=== PATIENT | female | born 1980 | race Caucasian/White ===

== ENCOUNTER 2016-08-09 06:51 | Inpatient (IN) | payer OTHER ==
[~2016-08-09] VITALS: Ht 154.9 cm; Wt 68.0 kg
[2016-08-09] VITALS (30 sets, daily range): BP systolic 94–128; BP diastolic 49–91; PULSE 62–181; RESP 18–20; TEMP 97.1–102.5
[~2016-08-09 06:51] MED LIST: PRENTAB16 PO
[2016-08-09] MEDS ORDERED: LACTATED RINGER'S 1000 ML INJ 1,000 ML IV PRN (07:28)
[2016-08-09] MEDS ORDERED: CITRIC ACID-SODIUM CITRATE LIQ 30 ML UDC PO SCH ×2 (07:30→23:45)
[2016-08-09] MEDS ORDERED: SODIUM CHLORID 0.9% 500 ML INJ 500 ML IV PRN (07:30)
[2016-08-09] MEDS ORDERED: LIDOCAINE HCL 1% 50 ML VIAL I-DERMAL PRN (07:30)
[2016-08-09] MEDS ORDERED: OXYTOCIN 30 UNITS-500ML PREMIX 500 ML IV ONE (07:30)
[2016-08-09] MEDS ORDERED: LIDOCAINE HCL 1% 50 ML VIAL INFIL PRN (07:30)
[2016-08-09] MEDS ORDERED: MINERAL OIL 10 ML VIAL TOPICAL PRN (07:30)
--- NOTE | 2016-08-09 07:35 | HHI.HP ---
HPI Chief Complaint Thomas broken Date Seen: Aug 09, 2016 Travel History International Travel<30 Days: No Contact w/Intl Traveler<30Days: No Known Affected Area: No History of Present Illness HPI This patient is a 35-year-old white female at 38 weeks and [address] Garza who complains of membranes rupturing earlier this morning and irregular contractions. The heart rate tracing is reactive and contractions are noted on the monitor. Her amnio sure is positive. Para: 0 : 1 History Past Medical History Medical History: Denies Significant Hx Past Surgical History Surgical History: No Previous Surgery Social History Alcohol Use: No Tobacco Use: No Substance Abuse: No Allergies-Medications (Allergen,Severity, Reaction): Coded Allergies: No Known Allergies (Unverified , 04/14/16) Home Meds Active Scripts Comcomplete Complete Tab1 Tab PO DAILY 30 Days Ref 0 Prov:Yulia Kennedy MD R1 01/14/16 Review of Systems General / Constitutional: No: Fever, Weight Gain, Chills, Other Eyes: No: Diploplia, Blurred Vision, Visual changes, Pain, Photophobia HENT: No: Headaches, Vertigo, Lightheadedness Cardiovascular: No: Irregular Rhythm, Chest Pain or Discomfort, Palpitations, Tachycardia, Syncope, Varicosities, Edema, Cyanosis Respiratory: No: Cough, Short of Breath, Other Gastrointestinal: No: Nausea, Vomiting, Diarrhea Genitourinary: No: Decreased Urinary Output, Oliguria Musculoskeletal: No: Limited ROM, Weakness, Cramping, Edema, Pain Skin: No Rash, No Itching, No Dryness, No Lumps, No Change in Pigmentation, No Change in Nails, No Alopecia, No Lesions Neurologic: No: Weakness, Dizziness, Syncope, Focal Abnormalities, Coordination Problem, Headache, Slurred Speech, Seizures Psychiatric: No: Depression, Suicidal Ideations, Homicidal Ideation Endocrine: No: Heat Intolerance, Cold Intolerance, Polydipsia, Polyuria, Other Physical Exam Narrative GENERAL: Well-nourished, well-developed patient. SKIN: Warm and dry. HEAD: Normocephalic and atraumatic. EYES: No scleral icterus. No injection or drainage. ENT: No nasal drainage noted. Mucous membranes pink. Airway patent. NECK: Supple, trachea midline. No JVD. CARDIOVASCULAR: Regular rate and rhythm without murmurs, gallops, or rubs. RESPIRATORY: Breath sounds equal bilaterally. No accessory muscle use. BREASTS: Bilateral exam showed no masses , no retractions, no nipple discharge. ABDOMEN/GI: Abdomen soft, non-tender, bowel sounds present, no rebound, no guarding Gravid to [-38] weeks size Fundal Height: [-37 cm] GENITOURINARY: External Genitalia: intact and normal in appearance BUS glands: [-] Cervix: [-] Dilatation: [3-] Effacement: [60-] Station: [-2] Presentation: [vtx-] Membranes: ruptured] Uterine Contractions: [-irreg] FHT's: Category: [1-] Baseline: [144-] Reactive: [yes-] Variability: [-mod] Decels: [-none] EXTREMITIES: No cyanosis or edema. BACK: Nontender without obvious deformity. No CVA tenderness. NEUROLOGICAL: Awake and alert. Motor and sensory grossly within normal limits. Five out of 5 muscle strength in all muscle groups. Normal speech. Data Data Orders Admit To Inpatient (08/09/16 ) Vital Signs (Adult) .Per protocol (08/09/16 07:28) ^ Heart (08/09/16 07:28) ^ Amnioinfusion (08/09/16 07:28) Urinary Catheter Management .ONCE (08/09/16 07:28) Lactated Ringer's 1000 Ml Inj (Lr 1000 M (08/09/16 07:28) Lactated Ringer's 1000 Ml Inj (Lr 1000 M (08/09/16 07:28) Sodium Chlorid 0.9% 500 Ml Inj (Ns 500 M (08/09/16 07:30) Sodium Chlor 0.9% 1000 Ml Inj (Ns 1000 M (08/09/16 07:48) Lidocaine 1% Inj (50 Ml) (Xylocaine 1% I (08/09/16 07:30) Citric Acid-Sodium Citrate Liq (Bicitra (08/09/16 07:30) Fentanyl Inj (Fentanyl Inj) (08/09/16 07:30) Fentanyl Inj (Fentanyl Inj) (08/09/16 07:30) Complete Blood Count With Diff (08/09/16 07:28) Hold Clot (08/09/16 07:28) Abo/Rh Blood Type (08/09/16 07:28) Urinalysis - C+S If Indicated (08/09/16 07:28) Resp Oxygen Non Rebreathe Mask (08/09/16 ) ^ Epidural / Intrathecal Infus (08/09/16 07:28) Oxytocin 30 Units-500ml Premix (Pitocin (08/09/16 07:30) Lidocaine 1% Inj (50 Ml) (Xylocaine 1% I (08/09/16 07:30) Light Mineral Oil (Muri-Lube Oil) (08/09/16 07:30) Labs Amnio sure positive Assessment/Plan Assessment and Plan This patient is a 35-year-old white female at 38-39 weeks with complaints of water leaking earlier this morning with irregular contractions, her amnio sure is positive this morning she is 3 cm 60% effaced. heart rate tracing is reactive and irregular contractions are noted. The patient not feeling them that much at this time. Plan is to admit the patient for labor management and anticipate vaginal delivery will call Dr. Garza and notify of patient's arrival Fermín Sierra II, MD Aug 09, 2016 07:35
[2016-08-09] MEDS ORDERED: SODIUM CHLOR 0.9% 1000 ML INJ 1,000 ML IV PRN (07:48)
[2016-08-09 08:33] LABS: AUTOMATED NEUTROPHIL # 9.5 TH/MM3 (1.8-7.7); BASOPHIL % 0.3 % (0.0-2.0); EOSINOPHIL # 0.1 TH/MM3 (0-0.4); EOSINOPHIL % 0.5 % (0.0-4.0); HEMATOCRIT 34.1 % (35.0-46.0); HEMO FLAGS DIFF FINAL; LYMPH % 20.1 % (9.0-44.0); LYMPHOCYTE # 2.7 TH/MM3 (1.0-4.8); MEAN CELL VOLUME 83.8 FL (80.0-100.0); MEAN CORPUSCULAR HEMOGLOBIN 28.3 PG (27.0-34.0); MEAN CORPUSCULAR HGB CONC 33.8 % (32.0-36.0); MONO % 7.3 % (0.0-8.0); NEUT % 71.8 % (16.0-70.0); PLATELET COUNT 253 TH/MM3 (150-450); RED BLOOD COUNT 4.07 MIL/MM3 (4.00-5.30); RED CELL DISTRIBUTION WIDTH 13.3 % (11.6-17.2); WHITE BLOOD COUNT 13.2 TH/MM3 (4.0-11.0)
[2016-08-09 08:48] LABS: BACTERIA, URINE OCC /hpf; BLOOD, URINE SMALL (NEG); COMMENT (UR) CULTURE INDICATED; CULTURE IF INDICATED CULTURE INDICATED; GLUCOSE,URINE NEG (NEG); KETONE, URINE NEG (NEG); NITRITE,URINE NEG (NEG); SQUAMOUS EPITHELIAL CELL URINE 4 /hpf (0-5); URINE COLOR YELLOW (YELLW/STRAW)
[2016-08-09] MEDS ORDERED: OXYTOCIN 30 UNITS/NS 500ML PREMIX IV SCH (09:00)
[2016-08-09] MEDS: LACTATED RINGER'S 1000 ML INJ 1,000 ML IV SCH ×4 (09:01→20:06)
[2016-08-09] MEDS ORDERED: ePHEDrine/NS 25 MG/5 ML SYR ONE (13:46)
[2016-08-09] MEDS ORDERED: fentaNYL 2MCG-BUPIV 0.125% INJ 100 ML ONE (13:46)
[2016-08-09] MEDS ORDERED: fentaNYL 2MCG-BUPIV 0.125% INJ 100 ML EPIDURAL SCH (14:45)
[2016-08-09] MEDS ORDERED: NO SYSTEM NARCOTICS XX PRN (14:45)
[2016-08-09] MEDS ORDERED: ePHEDrine/NS 25 MG/5 ML SYR IV PRN (14:45)
[2016-08-09] MEDS ORDERED: DO NOT ADMINISTER ANTICOAGULANTS XX PRN (14:45)
[2016-08-09] MEDS ORDERED: PENICILLIN G POTASSIUM INJ 5,000,000 UNITS in SODIUM CHLORIDE 0.9% INJ 100 ML IV ONE (21:00)
--- NOTE | 2016-08-09 22:16 | PD.LABORPN ---
Subjective Subjective feeling pressure, still very uncomfortable with vaginal checks despite epidural Objective Vital Signs Vital Signs Date Time Temp Pulse Resp B/P Pulse Ox O2 Delivery O2 Flow Rate FiO2 08/09/16 21:38 106 124/91 08/09/16 21:15 99 94/63 08/09/16 21:00 84 102/64 08/09/16 20:45 89 101/75 08/09/16 20:30 88 103/64 08/09/16 20:27 99.0 18 08/09/16 20:16 98 101/67 08/09/16 20:01 181 100/63 08/09/16 19:55 18 08/09/16 19:46 106 119/70 08/09/16 19:31 131 100/49 08/09/16 19:19 84 08/09/16 19:19 128/91 08/09/16 19:00 73 97/61 08/09/16 18:59 18 08/09/16 18:58 98.3 08/09/16 18:56 78 100/51 Objective Pelvic Exam: Cervix: c/c/0 Presentation: ceph LOP, some molding and beginnings of overriding sutures Membranes: ruptured Uterine Contractions:not adequate FHT's: Category:presently Cat I over last 30 min, previously cat II( prolonged decel x 2, over 1 min in duration spontaneous return to baseline, maintained variability, pitocin decreased at that time and pt repositioned) Baseline: 155-160 Reactive: [-] Variability: mod Decels: previously Assessment/Plan Problem List: (1) Delayed delivery after SROM (spontaneous rupture of membranes)antepart Assessment and Plan 35 yo with iup at 38w5d who presented with srom at 0230 1) SROM- induction with pitocin. prolonged rupture, on abx prophylaxis. - pelvis very narrow, d/w pt and family that pelvis may not be adequate for vaginal delivery. She has fully dilated but has had no descent since 1430 today. Exam difficult as pt still uncomfortable with epidural but presentation appears to be ROP and there is some molding and overriding sutures that were not present on my previous exam 3.5 hours ago. She has started pushing with RN but has had no descent. Will allow for another 30 min trial and if no significant change, will proceed with primary cd. Additionally, she has had intermittent Cat II tracing, maintained variability, that has required pitocin dose to be repeatedly decreased. At present MVU not adequate on pitocin of 4, tracing presently Cat I Evelyn Patterson MD Aug 09, 2016 22:16
[2016-08-09] MEDS ORDERED: ACETAMINOPHEN 1000 MG/100 ML VIAL IV ONE (22:40)
[2016-08-09] MEDS ORDERED: OXYTOCIN 10 UNIT/ML AMP ONE (23:01)
[2016-08-09] MEDS ORDERED: ONDANSETRON HCL 4 MG/2 ML VIAL ONE (23:30)
[2016-08-09] MEDS ORDERED: MORPHINE SULFATE PF 5 MG/10 ML VIAL ONE (23:30)
[2016-08-10] VITALS (15 sets, daily range): BP systolic 93–112; BP diastolic 51–69; PULSE 72–89; RESP 16–18; TEMP 97.7–98.6; O2SAT 83–95
--- NOTE | 2016-08-10 00:08 | PD.OB.DELI ---
Procedure Note Section Procedure Pre Op Diagnosis: (1) Delayed delivery after SROM (spontaneous rupture of membranes)antepart (2) Chorioamnionitis (3) Cephalopelvic disproportion (4) Arrested labor Post Op Diagnosis: (1) Delayed delivery after SROM (spontaneous rupture of membranes)antepart (2) Chorioamnionitis (3) Cephalopelvic disproportion (4) Arrested labor Performed by Evelyn Patterson Procedure: Primary Low Transverse Sec Indication for delivery: Other (chorioamnionitis, arrest of descent, Cat II tracing) Confirmed correct: Patient, Procedure, Site, Time-out taken Anesthesia: Epidural Medication prior to procedure: As documented in eMAR Monitoring during procedure: Blood pressure monitoring, Pulse oximetry Urinary catheter: ml urine output (350ml) Sterile preparation: With 2% chlorexidine (Hibiclens) Position: Supine with wedge to right side, Supine with safety belt applied Operative Features Skin Incision: Pfannenstiel Uterine Incision: Low transverse w/knife / blunt ext Membranes Ruptured: Previously, Appearance of fluid (clear) Delivery of : Uneventful : Male One Minute : 9 Five Minute : 9 Weight: 6 lb 9 oz Status of : Viable, Cord blood Placenta delivered: Intact Medications: Antibiotics, Oxytocin Estimated blood loss: 600ml Procedure tolerated: Well Maternal Condition: Stable Baby Complications: Other (nuchal cord x 1 reduced ) Condition: Stable Procedure in detail dictated Evelyn Patterson MD Aug 10, 2016 00:08
[2016-08-10] MEDS ORDERED: DOCUSATE SODIUM 50 MG/SENNA 8.6 MG TAB PO PRN (00:15)
[2016-08-10] MEDS ORDERED: SODIUM CHLORIDE 0.9% FLUSH 5 ML FLUSH IV PRN (00:15)
[2016-08-10] MEDS ORDERED: ONDANSETRON HCL 4 MG/2 ML VIAL IV PUSH PRN (00:15)
[2016-08-10] MEDS ORDERED: OXYTOCIN 30 UNITS-500ML PREMIX 500 ML IV ONE (00:15)
[2016-08-10] MEDS ORDERED: ACETAMINOPHEN 325 MG TAB PO PRN (00:15)
[2016-08-10] MEDS: LACTATED RINGER'S 1000 ML INJ 1,000 ML IV SCH ×2 (00:33→00:34)
[2016-08-10] MEDS ORDERED: PENICILLIN G POTASSIUM INJ 2,500,000 UNITS in SODIUM CHLORIDE 0.9% INJ 100 ML IV SCH (01:00)
[2016-08-10] MEDS ORDERED: EPIDURAL-NO SYSTEMIC NARCOTICS XX PRN (02:15)
[2016-08-10] MEDS ORDERED: EPIDURAL-NALOXONE HCL 0.4 MG/ML AMP IV PRN (02:15)
[2016-08-10] MEDS ORDERED: EPIDURAL-DO NOT ADMINISTER ANTICOAGULANTS XX PRN (02:15)
[2016-08-10] MEDS ORDERED: EPIDURAL-DIPHENHYDRAMINE HCL 50 MG CAP PO PRN (02:15)
[2016-08-10] MEDS ORDERED: EPIDURAL-DIPHENHYDRAMINE HCL 50 MG/ML VIAL IV PUSH PRN (02:15)
--- NOTE | 2016-08-10 07:28 | HHI.OB ---
Subjective Post Operative Day: 1 Remarks 7 hours after section resting comfortably plans to nurse Objective Vitals/I&O Vital Signs Date Time Temp Pulse Resp B/P Pulse Ox O2 Delivery O2 Flow Rate FiO2 08/10/16 03:00 98.2 86 18 102/51 08/10/16 01:17 80 18 107/66 95 08/10/16 01:12 85 18 112/63 08/10/16 01:11 83 08/10/16 01:10 98.2 08/10/16 01:00 72 103/54 08/10/16 00:58 18 94 08/10/16 00:37 94 08/10/16 00:37 18 08/10/16 00:36 89 112/67 08/10/16 00:18 86 18 95 08/10/16 00:17 106/69 08/10/16 00:17 98.6 08/09/16 22:35 102.5 08/09/16 22:31 128 128/66 08/09/16 21:38 106 124/91 08/09/16 21:15 99 94/63 08/09/16 21:00 84 102/64 08/09/16 20:45 89 101/75 08/09/16 20:30 88 103/64 08/09/16 20:27 99.0 18 08/09/16 20:16 98 101/67 08/09/16 20:01 181 100/63 08/09/16 19:55 18 08/09/16 19:46 106 119/70 08/09/16 19:31 131 100/49 08/09/16 19:19 84 08/09/16 19:19 128/91 08/09/16 19:00 73 97/61 08/09/16 18:59 18 08/09/16 18:58 98.3 08/09/16 18:56 78 100/51 08/09/16 12:07 20 08/09/16 12:00 62 105/68 08/09/16 11:31 73 102/60 08/09/16 10:43 81 95/66 08/09/16 10:42 97.1 18 08/09/16 10:41 76 95/71 08/09/16 10:01 67 121/64 08/09/16 09:34 79 104/50 08/09/16 09:06 68 114/66 08/09/16 08:00 98.1 18 08/09/16 07:48 75 115/71 Result Diagram: 08/09/16 08 Objective Remarks GENERAL: Well-nourished, well-developed patient. CARDIOVASCULAR: Regular rate and rhythm without murmurs, gallops, or rubs. RESPIRATORY: Breath sounds equal bilaterally. No accessory muscle use. ABDOMEN/GI: Abdomen soft, non-tender, bowel sounds present. bandage: Clean, dry and intact. Fundus: Firm, non-tender at umbilicus. GENITOURINARY: Light to moderate bleeding. EXTREMITIES: No cyanosis or edema, non-tender, without signs of DVT. Medications and IVs Current Medications Medications (Trade) Dose Ordered Sig/Rohini Route Start Time Stop Time Status Last Admin (Lr 1000 ml Inj) 1,000 ml @ 100 mls/hr Q10H IV 08/10/16 05:09 08/11/16 01:08 08/10/16 00:34 (NS Flush) 2 ml BID IV 08/10/16 09:00 (NS Flush) 2 ml UNSCH PRN IV 08/10/16 00:15 (Mylicon Chew) 80 mg QID PRN PO 08/10/16 00:15 (Tylenol) 650 mg Q6H PRN PO 08/10/16 00:15 (Motrin) 600 mg Q6H PRN PO 08/10/16 00:15 (Percocet 5-325 Mg) 1 tab Q4H PRN PO 08/10/16 00:15 (Percocet 5-325 Mg) 2 tab Q4H PRN PO 08/10/16 00:15 (Benita-Colace) 2 tab Q12H PRN PO 08/10/16 00:15 (M-M-R Ii Inj) 0.5 ml ONCE ONCE SQ 08/11/16 16:00 08/11/16 16:01 (Boostrix Inj) 0.5 ml ONCE ONCE IM 08/11/16 16:00 08/11/16 16:01 (Zofran Inj) 4 mg Q6H PRN IV PUSH 08/10/16 00:15 Miscellaneous Information NO SYSTEMIC NARCOTICS TO BE GIVEN FO... UNSCH PRN XX 08/10/16 02:15 08/11/16 02:14 (Narcan Inj) 0.4 mg UNSCH PRN IV 08/10/16 02:15 08/11/16 02:14 (Benadryl Inj) 25 mg Q6H PRN IV PUSH 08/10/16 02:15 08/11/16 02:14 (Benadryl) 50 mg Q6H PRN PO 08/10/16 02:15 08/11/16 02:14 Miscellaneous Information ALL NURSING DEPARTMENTS UNSCH PRN XX 08/10/16 02:15 08/11/16 02:14 Assessment/Plan Problem List: (1) Delayed delivery after SROM (spontaneous rupture of membranes)antepart Assessment and Plan Primip with unscheduled section due to PROM at home and chorio during labor should have normal post recovery anticipate discharge POD 2/3 Tasha Brown MD Aug 10, 2016 07:28
[2016-08-10] MEDS ORDERED: OXYTOCIN 30 UNITS-500ML PREMIX 500 ML IV PRN (10:15)
[2016-08-10] MEDS: IBUPROFEN 600 MG TAB PO PRN ×2 (10:33→21:08)
[2016-08-10] MEDS: oxyCODONE/ACETAMINOPHEN 5 MG/325 MG TAB PO PRN ×2 (12:18→19:21)
[2016-08-11] MEDS: oxyCODONE/ACETAMINOPHEN 5 MG/325 MG TAB PO PRN ×5 (01:40→22:00)
[2016-08-11] MEDS: IBUPROFEN 600 MG TAB PO PRN ×4 (05:40→22:46)
[2016-08-11 08:10] LABS: AUTOMATED NEUTROPHIL # 15.7 TH/MM3 (1.8-7.7); BASOPHIL % 0.1 % (0.0-2.0); EOSINOPHIL # 0.1 TH/MM3 (0-0.4); EOSINOPHIL % 0.6 % (0.0-4.0); HEMATOCRIT 25.8 % (35.0-46.0); HEMO FLAGS DIFF FINAL; LYMPH % 10.3 % (9.0-44.0); LYMPHOCYTE # 1.9 TH/MM3 (1.0-4.8); MEAN CELL VOLUME 85.3 FL (80.0-100.0); MEAN CORPUSCULAR HEMOGLOBIN 28.6 PG (27.0-34.0); MEAN CORPUSCULAR HGB CONC 33.5 % (32.0-36.0); MONO % 5.6 % (0.0-8.0); NEUT % 83.4 % (16.0-70.0); PLATELET COUNT 179 TH/MM3 (150-450); RED BLOOD COUNT 3.02 MIL/MM3 (4.00-5.30); RED CELL DISTRIBUTION WIDTH 13.8 % (11.6-17.2); WHITE BLOOD COUNT 18.9 TH/MM3 (4.0-11.0)
[2016-08-11 08:15] VITALS: BP 91/62; PULSE 78; RESP 18; TEMP 98.2
--- NOTE | 2016-08-11 08:34 | HHI.OB ---
Subjective Post Operative Day: 2 Remarks no complaints, baby on bili blanket, no N/V Objective Vitals/I&O Vital Signs Date Time Temp Pulse Resp B/P Pulse Ox O2 Delivery O2 Flow Rate FiO2 08/11/16 06:40 18 08/11/16 06:40 18 08/10/16 20:45 97.9 87 18 102/57 08/10/16 17:00 98.1 16 08/10/16 17:00 87 94/54 Result Diagram: 08/09/16 0805 Objective Remarks GENERAL: Well-nourished, well-developed patient. CARDIOVASCULAR: Regular rate and rhythm without murmurs, gallops, or rubs. RESPIRATORY: Breath sounds equal bilaterally. No accessory muscle use. ABDOMEN/GI: Abdomen soft, non-tender, bowel sounds present. incision: Clean, dry and intact. Fundus: Firm, non-tender at umbilicus. GENITOURINARY: Light to moderate bleeding. EXTREMITIES: No cyanosis or edema, non-tender, without signs of DVT. Medications and IVs Current Medications Medications (Trade) Dose Ordered Sig/Rohini Route Start Time Stop Time Status Last Admin (NS Flush) 2 ml BID IV 08/10/16 09:00 (NS Flush) 2 ml UNSCH PRN IV 08/10/16 00:15 (Mylicon Chew) 80 mg QID PRN PO 08/10/16 00:15 (Tylenol) 650 mg Q6H PRN PO 08/10/16 00:15 (Motrin) 600 mg Q6H PRN PO 08/10/16 00:15 08/11/16 05:40 (Percocet 5-325 Mg) 1 tab Q4H PRN PO 08/10/16 00:15 08/10/16 19:21 (Percocet 5-325 Mg) 2 tab Q4H PRN PO 08/10/16 00:15 08/11/16 05:40 (Benita-Colace) 2 tab Q12H PRN PO 08/10/16 00:15 (M-M-R Ii Inj) 0.5 ml ONCE ONCE SQ 08/11/16 16:00 08/11/16 16:01 (Boostrix Inj) 0.5 ml ONCE ONCE IM 08/11/16 16:00 08/11/16 16:01 (Zofran Inj) 4 mg Q6H PRN IV PUSH 08/10/16 00:15 Assessment/Plan Problem List: (1) Delayed delivery after SROM (spontaneous rupture of membranes)antepart (2) Chorioamnionitis (3) Arrested labor (4) delivery delivered Assessment and Plan Primip with unscheduled section due to PROM at home and chorio during labor should have normal post recovery anticipate discharge POD 2/3 circ done today Discharge Planning routine Attending Attestation pt seen by Maegan Knowles MD Aug 11, 2016 08:34
[2016-08-11] MEDS: SODIUM CHLORIDE 0.9% FLUSH 5 ML FLUSH IV SCH ×2 (09:00→21:00)
[2016-08-11] MEDS: SIMETHICONE 80 MG CHEWABLE TAB PO PRN (11:52)
[2016-08-11] MEDS ORDERED: MEASLES, MUMPS, RUBELLA VACCINE 0.5 ML VIAL SQ ONE (16:00)
[2016-08-11] MEDS ORDERED: DIPHTH/TETANUS/ACEL PERTUSSIS (BOOSTER) 0.5 ML VIAL/PFS IM ONE (16:00)
[2016-08-12] MEDS: oxyCODONE/ACETAMINOPHEN 5 MG/325 MG TAB PO PRN ×2 (05:31→10:18)
[2016-08-12] MEDS: IBUPROFEN 600 MG TAB PO PRN ×2 (05:32→10:18)
[2016-08-12] MEDS: SIMETHICONE 80 MG CHEWABLE TAB PO PRN (05:40)
--- NOTE | 2016-08-12 08:46 | MP ---
cc: EVELYN PATTERSON MD DATE OF SURGERY: 06/09/2017 PREOPERATIVE DIAGNOSIS 1. Intrauterine at 38-weeks and 5 days. 2. Premature rupture of membranes with prolonged rupture before active labor. 3. Chorioamnionitis. 4. Arrest of descent. 5. Cephalopelvic disproportion. POSTOPERATIVE DIAGNOSIS 1. Intrauterine at 38-weeks and 5 days. 2. Premature rupture of membranes with prolonged rupture before active labor. 3. Chorioamnionitis. 4. Arrest of descent. 5. Cephalopelvic disproportion. PROCEDURE PERFORMED Primary low transverse delivery. INDICATIONS The patient is a 35-year-old, G2, P0, who presented at 38-weeks and 5 days with spontaneous rupture of membrane at 02:30 in the morning and she was not in active labor. She was induced with Pitocin. She slowly progressed to complete and zero station but developed chorioamnionitis. Maternal temperature was 102 degrees Fahrenheit. Maternal tachycardia and tachycardia did develop. She was having late decelerations but maintained variability. She had a trial of pushing but had no descent. Additionally maternal pelvis appeared to be inadequate. There was molding and overriding sutures appreciated on exam and the baby was LOT. Discussed with family about risk of chorioamnionitis, possible weak contractions, poor uterine tone, predisposition to hemorrhage and likelihood of inadequate pelvis, recommended delivery. The risks, benefits and alternatives were discussed. The patient and family was agreeable with the care plan. Consents were signed in the chart. SURGEON Evelyn Patterson MD [employer] Dr. Adri Arteaga. ESTIMATED BLOOD LOSS 600 mL. IV FLUID Lactated Ringer's 1200 mL. URINE OUTPUT 350 mL of clear yellow urine at the end of the case. COMPLICATIONS None. COUNTS Counts correct x3. SPECIMEN Cord blood, placenta to pathology and cultures. PROPHYLAXIS DVT prophylaxis: SCDs to bilateral lower extremities. Antibiotic prophylaxis: Ancef 1 gram IV pre-incision, and abx in labor INTRAOPERATIVE FINDINGS Viable male infant. weight of 6 pounds 14 ounces, Apgars of 9 and 9 at 1 minute and 5 minutes respectively. Nuchal cord loose, reduced prior to delivery of body. Presentation LOT. Amniotic fluid clear. Maternal findings normal uterus, tubes and ovaries. Placenta intact, three-vessel cord. PROCEDURE IN DETAIL After giving informed consent the patient was taken to the operating room where epidural was noted to be adequate. A Humphrey was previously in place. Time out was performed. The abdomen was prepped and draped in normal sterile fashion. A Pfannenstiel skin incision was made with a scalpel and carried down to the underlying layer of fascia with the scalpel. The fascia was incised in the midline. The incision was extended bilaterally with Roche scissors. The rectus muscle was in the midline and the peritoneum was entered bluntly. The bladder blade was then inserted and bladder flap was created with Metzenbaum scissors. Low transverse uterine incision was made with a scalpel. This was extended bluntly. The head was then flexed and brought to level of the hysterotomy and fundal pressure was used to deliver the . The cord was doubly clamped and cut. The baby was bulb suctioned and handed off to the awaiting pediatricians. Cord blood was collected. IV infusion of pitocin was started immediately after delivery of the . The placenta was then delivered with gentle uterine massage and cord traction. The uterus was exteriorized, cleared of all clots and debris with moist laparotomy sponge. The uterine incision was repaired in two layers with #1 Chromic in a running locked fashion followed by imbricating layer. The uterus was noted to have an area of bleeding. This was made hemostatic with two [id number], this was near the left angle. The posterior cul-de-sac was irrigated and suctioned. The uterus was returned to the abdomen. The anterior cul-de-sac was irrigated and suctioned. Good hemostasis was noted. The peritoneum was closed with 2-0 Chromic in a running fashion. The fascia was then closed with #1 Vicryl in a running fashion. The subcutaneous tissue was irrigated. Hemostasis was obtained with the Bovie. The skin was closed with 3-0 Monocryl and pressure dressing was placed. The patient tolerated the procedure well. Evelyn Patterson MD PE/PARTHA /12:13 AM /8:38 AM ALMA ROSA
[2016-08-12] MEDS ORDERED: OXYC1TAB63 PO (09:35)
[2016-08-12] MEDS ORDERED: IBUP-232 PO (09:35)
--- NOTE | 2016-08-12 09:35 | HHI.DCPOC ---
Discharge Care Plan Diagnosis: (1) delivery delivered Your Health Problems Are: delivery Report Symptoms to Your Doctor -Temperate above 100.5 degrees -Redness, of incision or excessive or foul smelling drainage -Unusual pain or calf pain -Increased vaginal bleeding -Painful or difficulty urinating -Feelings of extreme sadness or anxiety after 2 weeks Goals to Promote Your Health * To prevent worsening of your condition and complications * To maintain your health at the optimal level Directions to Meet Your Goals Take your medications as prescribed Follow your dietary instruction Follow activity as directed Ensure plenty of rest for recovery Drink fluids for hydration Keep your appointments as scheduled Take your immunizations and boosters as scheduled If your symptoms worsen call your PCP, if no PCP go to Urgent Care Center or Emergency Room Smoking is Dangerous to Your Health. Avoid second hand smoke Call the 24-hour crisis hotline for domestic abuse at Evelyn Patterson MD Aug 12, 2016 09:35
--- NOTE | 2016-08-12 09:39 | HHI.OB ---
Subjective Post Operative Day: 3 Remarks ambulating, min bleeding. Has not passed flatus yet but would like to go home Objective Result Diagram: 08/11/16 0751 Objective Remarks GENERAL: Well-nourished, well-developed patient. CARDIOVASCULAR: Regular rate and rhythm without murmurs, gallops, or rubs. RESPIRATORY: Breath sounds equal bilaterally. No accessory muscle use. ABDOMEN/GI: Abdomen soft, non-tender, bowel sounds present.mild distension. incision: Clean, dry and intact. Fundus: Firm, non-tender at umbilicus. GENITOURINARY: Light to moderate bleeding. EXTREMITIES: No cyanosis or edema, non-tender, without signs of DVT. Medications and IVs Current Medications Medications (Trade) Dose Ordered Sig/Rohini Route Start Time Stop Time Status Last Admin (NS Flush) 2 ml BID IV 08/10/16 09:00 (NS Flush) 2 ml UNSCH PRN IV 08/10/16 00:15 (Mylicon Chew) 80 mg QID PRN PO 08/10/16 00:15 08/12/16 05:40 (Tylenol) 650 mg Q6H PRN PO 08/10/16 00:15 (Motrin) 600 mg Q6H PRN PO 08/10/16 00:15 08/12/16 05:32 (Percocet 5-325 Mg) 1 tab Q4H PRN PO 08/10/16 00:15 08/10/16 19:21 (Percocet 5-325 Mg) 2 tab Q4H PRN PO 08/10/16 00:15 08/12/16 05:31 (Benita-Colace) 2 tab Q12H PRN PO 08/10/16 00:15 08/11/16 17:33 (Zofran Inj) 4 mg Q6H PRN IV PUSH 08/10/16 00:15 Assessment/Plan Problem List: (1) Delayed delivery after SROM (spontaneous rupture of membranes)antepart (2) Chorioamnionitis (3) Arrested labor (4) delivery delivered Assessment and Plan Primip with unscheduled section due to PROM at home and chorio during labor POD 3- cont routine care. Pt has not passed flatus yet but has had minimal ambulation; discussed holding d/c until she passes flatus but she wants to go home and will call office if she is unable to pass flatus today or have bm in 2 days. Discussed increased fluids, miralax use if needed. Discussed importance of ambulation in recovery. Anemia- normal heart rate, BP similar to baseline BP, no sob, not feeling dizzy , no orthostatic symptoms circ done yesterday Discharge Planning routine Evelyn Patterson MD Aug 12, 2016 09:39
[2016-08-12] MEDS ORDERED: SENN1TAB PO (10:51)
== END 2016-08-12 13:19 | disposition home or self-care (01) | DRG 765 ==
LOC: HOBED 06:51 → H2EA 07:35 → H1EA 08-10 01:48
PROVIDERS: ADMIT Obstetrics & Gynecology; ATTEND Obstetrics & Gynecology
PROC: 00HU33Z Insertion of Infusion Device into Spinal Canal, Percutaneous Approach (ICD-10-PCS; 2016-08-09)
PROC: 3E0R3CZ (ICD-10-PCS; 2016-08-09)
PROC: 10D00Z1 Extraction of Products of Conception, Low, Open Approach (ICD-10-PCS; principal; 2016-08-10)
DX: O42.92 Full-term premature rupture of membranes, unspecified as to length of time between rupture and onset of labor (principal); O41.1230 Chorioamnionitis, third trimester, not applicable or unspecified; Z37.0 Single live birth; O62.1 Secondary uterine inertia; Z3A.38 38 weeks gestation of pregnancy; O33.9 Maternal care for disproportion, unspecified; O76 Abnormality in fetal heart rate and rhythm complicating labor and delivery; O69.81X0 Labor and delivery complicated by cord around neck, without compression, not applicable or unspecified
CPT/HCPCS: 59025; 81001; 84112; 85025; 85461; 86850; 86900; 86901; 87070; 87086; 88307; 90384; 99285; J0131; J2274; J2405; J2590; J2790; J3010; J7120

== ENCOUNTER 2016-08-13 18:24 | Emergency (ER) | payer OTHER ==
[~2016-08-13] VITALS: Ht 154.9 cm; Wt 68.0 kg
[~2016-08-13 18:24] MED LIST changes: +IBUP-232 PO; +OXYC1TAB63 PO; +SENN1TAB PO
== END 2016-08-13 19:50 | disposition left against medical advice (07) ==
LOC: NED 18:24
DX: O90.9 Complication of the puerperium, unspecified (principal)
CPT/HCPCS: 99281